=== PATIENT | female | born 1950 | race Caucasian/White ===

== ENCOUNTER 2016-12-14 05:44 | Day surgery (SDC) | payer BC ==
[2016-12-08 17:14] LABS: HEMATOCRIT 38.3 % (36.0-48.0); HEMOGLOBIN 13.6 g/dL (12.0-16.0)
[2016-12-08 17:35] LABS: BUN (BLOOD UREA NITROGEN) 18 MG/DL (6-23); CALCIUM, SERUM 8.9 MG/DL (8.5-10.4); CHLORIDE, SERUM 105 MMOL/L (96-112); CO2 (CARBON DIOXIDE) 28 MMOL/L (24-34); CREATININE 0.62 MG/DL (0.55-1.02); GFR AFRICAN AMERICAN 110 ML/MIN (>=60); GFR NON AFRICAN AMERICAN 95 ML/MIN (>=60); GLUCOSE, SERUM 86 MG/DL (60-99); POTASSIUM, SERUM 4.1 MMOL/L (3.5-5.3); SODIUM, SERUM 142 MMOL/L (135-148)
--- NOTE | ~2016-12-14 | OP ---
Record Of Operation [facility] [address] [place]. [address] NAME: IONA LEE : 52 [place]US [place] [facility] [place] [id number] AGE: 66 ADM/REG DATE : 12/14/16 MR#: [id number] REPORT SERV DATE: 12/14/16 DICTATED BY: NAEEM GIL DATE: 12/14/16 REPORT STATUS : Draft TRANSCRIBED BY: MODBrandyn DATE: 12/14/16 DATE OF PROCEDURE: 12/14/2016 PREOPERATIVE DIAGNOSES: 1. Right nasal septal deviation. 2. Bilateral inferior turbinate hypertrophy. POSTOPERATIVE DIAGNOSES: 1. Right nasal septal deviation. 2. Bilateral inferior turbinate hypertrophy. PROCEDURE: 1. Nasal septoplasty. 2. Bilateral inferior turbinate reduction. INDICATIONS: Iona Lee is a 66-year-old female, with a history of chronic nasal dyspnea and sleep apnea. She refused the UPPP and refuses the C-PAP mask, but we did drug abuse counselor together about the risks, benefits, and alternatives of nasal septoplasty and turbinate reduction. I think she can get significant improvement to her nasal airway, but I cautioned her about expecting a resolution of her sleep apnea after this procedure. She voiced an understanding of those risks and signed a consent form. I told her we might have to put a nasal splint in the nose and if so that should be removed at about five days. PROCEDURE IN DETAIL: Iona was brought to the operating room and positioned on the table in the supine manner. General endotracheal anesthesia was induced. The table was rotated 180 degrees. The patient was prepped and draped in the usual fashion. 0.5 x 3 cotton pledgets containing the 1:1000 epinephrine solution were placed into the nasal cavities and left in place for approximately three minutes. These were then removed. A left-sided hemitransfixion incision was performed. The mucoperichondrial flap was elevated on the left side of the nasal septum. The bony cartilaginous junction was . The flap was elevated on the right side of the septum as well. Nasal septal bone and cartilage were removed to reduce the septal deviation to the right. The [place] elevator was utilized to elevate the flap off the maxillary crest. This was reduced with the [place] elevator and the osteotome. Following this, the hemitransfixion incision was closed with 4-0 chromic and 5-0 plain, and the small Lance needle was utilized to quilt the septum in the usual fashion. The inferior turbinate on the left side was visualized with the 0-degree sinus endoscope viewed from the TV monitor. The sinus shaver was used to remove about 30% of the vertical height of the turbinate on this side. The cut edge had the bone trimmed with the Espinoza scissor. Following this, the cut edge of the turbinate was treated with the suction electrocautery. The right inferior turbinate was operated on in a manner similar to the left. Shultz splints were placed on both sides and sewn in place with a large Lance needle and the nylon suture. A piece of Surgicel was placed underneath the cut edge of the turbinate bilaterally to help with oozing. A drip pad was placed. The patient was returned Record Of Operation [address] [place]. [address] NAME: IONA LEE : 52 [place]US : [place] [facility] [place] [id number] AGE: 66 ADM/REG DATE : 12/14/16 MR#: [id number] REPORT SERV DATE: 12/14/16 DICTATED BY: NAEEM GIL DATE: 12/14/16 REPORT STATUS : Draft TRANSCRIBED BY: KAREN DATE: 12/14/16 to Anesthesia control. She was extubated in the operating room and moved to the recovery room in good condition. FINDINGS: 1. Estimated blood loss of 20 mL. 2. Total fluids given 800 mL of Ringer's lactate. 3. The patient had a severe right nasal septal deviation and significant bilateral inferior turbinate hypertrophy. 4. No polyps were seen in the nose. MYLES/KAREN Naeem Gil M.D. / [id number] CC: Chikis Nicolas DO
[~2016-12-14 05:44] MED LIST: ESTRACE1 MG PO; FISH-EPA1000 MG PO; MAG-SR535 MG PO; MEDROXYPR AC2.5 MG OR; OS500+D PO; PREM625 PO; PROVERA2.5 MG PO; [UNRECOGNIZED DRUG - OTHER] PO
== END 2016-12-14 17:43 | disposition home or self-care (01) ==
LOC: SDC 05:44
PROVIDERS: Otolaryngology
PROC: 099 Ear, Nose, Sinus, Drainage (ICD-10-PCS; 2016-12-14)
PROC: 09SM0ZZ Reposition Nasal Septum, Open Approach (ICD-10-PCS; principal; 2016-12-14 07:15)
DX: J34.2 Deviated nasal septum (principal); J34.3 Hypertrophy of nasal turbinates; G47.33 Obstructive sleep apnea (adult) (pediatric); Z96.653 Presence of artificial knee joint, bilateral; Z79.818 Long term (current) use of other agents affecting estrogen receptors and estrogen levels; Z79.899 Other long term (current) drug therapy
CPT/HCPCS: 80048; 85014; 85018; 88304; 93005; A9270-GY; J0690; J2250; J2405; J2710; J3010